=== PATIENT | female | born 1970 | race Caucasian/White ===

== ENCOUNTER 2023-02-27 18:22 | Emergency (ER) | payer OTHER ==
[~2023-02-27] VITALS: Ht 170.2 cm; Wt 100.0 kg
[2023-02-27 18:36] VITALS: BP 138/88; RESP 18; TEMP 98; O2SAT 98
[2023-02-27 18:38] VITALS: PULSE 88
[2023-02-27] MEDS ORDERED: NAPR375T5 MT (18:58)
== END 2023-02-27 20:09 | disposition home or self-care (01) ==
LOC: ER 18:22
DX: S20.219A Contusion of unspecified front wall of thorax, initial encounter (principal); E11.9 Type 2 diabetes mellitus without complications; V89.2XXA Person injured in unspecified motor-vehicle accident, traffic, initial encounter; Y93.89 Activity, other specified; Y92.89 Other specified places as the place of occurrence of the external cause; Y99.8 Other external cause status
CPT/HCPCS: 71045; 99283